=== PATIENT | female | born 1965 | race Caucasian/White ===

== ENCOUNTER → 2016-07-14 | Outpatient (CLI) | payer BC ==
[~2016-07-14] MED LIST: ALEVE 220MG220 MG; EPA FISH OIL1000 MG PO; FISH OIL REGUL300 MG PO; L-LYSINE500 MG PO; LISINOPRIL1 POW; MENEST0.3 MG PO; METHOCARBAMOL500 MG PO; MULTIPLE VITAMI1 CAP PO; PEPCID 20MG TAB20 MG; PERCOCET 325 MG1 TA2 PO; PREMPRO 0.625 M1 TA1 PO; PREMPRO 0.625/21 TAB PO; PRILOSEC 20MG20 MG PO; PRINZIDE 25 MG-1 TAB; PRINZIDE 25 MG-1 TAB PO; VITAMIN C PURE500 MG PO; ZOCOR 20MG20 MG; ZOCOR 20MG20 MG PO; ZYRTEC-D 5 MG-11 TER; ZYRTEC-D 5 MG-11 TER PO; [UNRECOGNIZED DRUG - OTHER] PO
== END ==
LOC: MC.RAD 09:14
DX: Z12.31 Encounter for screening mammogram for malignant neoplasm of breast (principal)

== ENCOUNTER → 2017-06-28 | Outpatient (CLI) | payer BC ==
[~2017-06-28] MED LIST changes: +MOBIC 7.5MG7.5 MG PO; +[UNRECOGNIZED DRUG - OTHER] PO
== END ==
LOC: COL.CARD 10:12
DX: R07.89 Other chest pain (principal); E78.00 Pure hypercholesterolemia, unspecified
CPT/HCPCS: A9502

== ENCOUNTER 2017-07-07 08:31 | Day surgery (SDC) | payer BC ==
[~2017-07-07] VITALS: Ht 152.4 cm; Wt 98.6 kg
[~2017-07-07 08:31] MED LIST changes: +PROMETRIUM100 MG PO
[2017-07-07] MEDS ORDERED: PREMARIN VAG42.5 GM TOP (09:09)
[2017-07-07 09:12] VITALS: BP 127/95; PULSE 88; TEMP 98.1
[2017-07-07 10:47] VITALS: BP 139/81; PULSE 88; TEMP 97.8
[2017-07-07 11:05] VITALS: BP 123/67; PULSE 82
[2017-07-07 11:16] VITALS: BP 109/53; PULSE 80
[2017-07-07 11:51] VITALS: BP 126/82; PULSE 83
== END 2017-07-07 11:45 | disposition home or self-care (01) ==
LOC: SDCO 08:31
DX: Z12.11 Encounter for screening for malignant neoplasm of colon (principal); K57.30 Diverticulosis of large intestine without perforation or abscess without bleeding; K64.4 Residual hemorrhoidal skin tags; K62.89 Other specified diseases of anus and rectum; I10 Essential (primary) hypertension; E78.00 Pure hypercholesterolemia, unspecified
CPT/HCPCS: OP; J2250; J3010; J7030

== ENCOUNTER → 2017-07-15 | Outpatient (CLI) | payer BC ==
[~2017-07-15] MED LIST changes: +PREMARIN VAG42.5 GM TOP
== END ==
LOC: MC.RAD 14:50
DX: Z12.31 Encounter for screening mammogram for malignant neoplasm of breast (principal)

== ENCOUNTER 2017-07-25 11:01 | Emergency (ER) | payer BC ==
[~2017-07-25] VITALS: Ht 152.4 cm; Wt 90.9 kg
[2017-07-25 11:03] VITALS: BP 127/80; TEMP 97.9
[2017-07-25 13:13] LABS: BASO # 0.1 (0.0-0.2); BASO % 0.6 % (0.0-2.0); EOS # 0.2 (0.0-0.7); EOS % 2.4 % (0-4.0); GRAN # 5.2 (1.4-6.5); GRAN % 59.9 % (42.2-75.2); HEMATOCRIT 41.2 % (37.0-47.0); HEMOGLOBIN 13.7 g/dl (12.5-16.0); LYMPH # 2.6 (1.2-3.4); LYMPH % 29.6 % (20.0-51.0); MEAN CELL VOLUME 88 fl (80.0-100.0); MEAN CORPUSCULAR HEMOGLOBIN 29 pg (27.0-31.0); MEAN CORPUSCULAR HGB CONC 33 g/dl (33.0-37.0); MEAN PLATELET VOLUME 9.2 fl (7.4-10.4); MONO # 0.6 (0.1-0.6); MONO % 7.3 % (1.7-9.3); PLATELET COUNT 397 K/mm3 (130-400); RED BLOOD COUNT 4.71 M/mm3 (4.10-5.30); REDCELL DISTRIBUTION WIDTH-CV 14.1 % (11.5-14.5)
[2017-07-25 13:28] LABS: ALBUMIN 4.4 gm/dL (3.5-5.0); BILIRUBIN,TOTAL 0.3 mg/dL (0.0-1.0); CALCIUM 9.5 mg/dL (8.4-10.2); CREATININE, serum 0.93 mg/dL (0.52-1.25); TOTAL PROTEIN 7.6 gm/dL (6.4-8.2)
[2017-07-25 14:22] VITALS: PULSE 80
== END 2017-07-25 14:22 | disposition home or self-care (01) ==
LOC: COL.ER 11:01
PROVIDERS: Nurse Practitioner
DX: R20.2 Paresthesia of skin (principal); I10 Essential (primary) hypertension; E78.5 Hyperlipidemia, unspecified

== ENCOUNTER → 2017-08-18 | Outpatient (CLI) | payer BC | LOC: COL.RAD 08:04 | DX: R74.8 Abnormal levels of other serum enzymes (principal) ==

== ENCOUNTER → 2018-07-21 | Outpatient (CLI) | payer BC | LOC: MC.RAD 11:16 | DX: Z12.31 Encounter for screening mammogram for malignant neoplasm of breast (principal) ==

== ENCOUNTER → 2019-08-10 | Outpatient (CLI) | payer BC | LOC: MC.RAD 15:30 | DX: Z12.31 Encounter for screening mammogram for malignant neoplasm of breast (principal) ==

== ENCOUNTER → 2020-08-12 | Outpatient (CLI) | payer BC | LOC: MC.RAD 10:57 | DX: Z12.31 Encounter for screening mammogram for malignant neoplasm of breast (principal) ==

== ENCOUNTER → 2021-08-11 | Outpatient (CLI) | payer BC | LOC: COL.RAD 10:13 | DX: R31.9 Hematuria, unspecified (principal); R30.0 Dysuria | CPT/HCPCS: Q9967 ==

== ENCOUNTER → 2021-08-26 | Outpatient (CLI) | payer BC | LOC: MC.RAD 15:30 | DX: Z12.31 Encounter for screening mammogram for malignant neoplasm of breast (principal) ==